=== PATIENT | female | born 1980 | race Caucasian/White ===

== ENCOUNTER → 2020-06-18 07:00 | Outpatient (CLI) | payer OTHER, SELFPAY ==
--- NOTE | 2020-06-18 07:06 | CT_ITS ---
STUDY: CT MAXILLOFACIAL SINUSES REASON FOR EXAM: Female, 40 years old. SINUSITIS RADIATION DOSAGE (If Supplied By Facility): CTDIvol = ( 33.06 ) mGy, DLP = ( 767.73 ) mGycm TECHNIQUE: The patient was scanned in a multi detector CT scanner. High resolution axial imaging was performed without the administration of intravenous contrast material. Sagittal and coronal images were reconstructed. Individualized dose optimization techniques were used for this CT. COMPARISON: None. FINDINGS: FRONTAL SINUSES: Normal aeration, without mucosal inflammatory disease. ETHMOIDAL SINUSES: Normal aeration, without mucosal inflammatory disease. MAXILLARY SINUSES: Normal aeration, without mucosal inflammatory disease. SPHENOIDAL SINUSES: Normal aeration, without mucosal inflammatory disease. There is patency of the bilateral maxillary infundibuli with normal uncinate processes, ethmoid bullae, and hiatus semilunaris. Normal bilateral middle turbinates. Normal bilateral inferior turbinates. There is a left sided nasal septal deviation, but without a nasal septal spur. There is patency of the bilateral nasal airways. The visualized osseous structures are normal. The visualized bilateral orbital contents are normal. CT/Sinus/Facial Bone IMPRESSION: 1. No CT evidence of acute or chronic sinusitis. 2. Patent ostial units bilaterally. 3. Deviation of nasal septum to the left. Electronically Signed: Jacobo Roach MD at 7:42 EDT Tel , Service support ,
== END ==
PROVIDERS: Referring Provider Otolaryngology; Visit Provider Otolaryngology
DX: J43.9 Emphysema, unspecified (principal)
CPT/HCPCS: 70486

== ENCOUNTER 2020-12-21 23:29 | Observation (INO) | payer OTHER, SELFPAY ==
[2020-12-21 23:30] VITALS: BP 118/76; PULSE 86; RESP 18; TEMP 36.9; O2SAT 96; BMI 30.4
--- NOTE | 2020-12-21 23:39 | ED.VIS.GEN ---
History of Present Illness Chief Complaint: Nausea/Vomiting/Diarrhea Informant: Patient Onset: Yesterday Context: Gradual Onset Timing: Continuous Current Severity: Moderate Maximum Severity: Moderate Narrative: The patient is an otherwise healthy 40-year-old female presents to the emergency department abdominal pain. Patient states that yesterday afternoon, she had queso dip from [employer]. She states that she ate it and then at about 5 PM, she began to feel nauseated. She states that she had a few bouts of vomiting and then loose watery diarrhea. She states that she vomited throughout the night and was unable to keep anything down. Today, she states she started with diffuse abdominal pain, but is now since migrated to her right lower quadrant. She states is very tender. She is had a low-grade fever. She also notes the chills. The patient is otherwise been in her normal state of health. She has no history of prior abdominal surgery. Prior similar symptoms: No Recent Illness/Hospitalization: No Past Medical History - Allergies and Home Meds Allergies/Adverse Reactions: Allergies Penicillins [PCN] Allergy (Verified 12/21/20 23:33) Hives Sulfa (Sulfonamide Antibiotics) Allergy (Verified 12/21/20 23:33) Hives Primary Care Physician: Care Physician,No Primary [Primary Care Provider] - Prior records reviewed: Yes Past Medical History: None Surgical History: noncontributory Review of Systems General: Denies: Chills, Fever, Sweats Eyes: Denies: Visual changes - bilaterally, Diplopia ENT: Denies: Rhinorrhea, Sore throat Cardiovascular: Denies: Chest pain, Palpitations Respiratory: Denies: Dyspnea, Cough, Dyspnea on exertion Gastrointestinal: Denies: Abdominal pain, Nausea, Vomiting, Diarrhea, Melena, Hematochezia Genitourinary: Denies: Dysuria, Hematuria, Frequency Musculoskeletal: Denies: Back pain, Extremity Pain Skin: Denies: Rash, Wounds Neurological: Denies: Headache, Weakness, Numbness Physical Exam Vital Signs/Narrative: Vital Signs Temp Pulse Resp BP Pulse Ox 12/21/20 23:30 98.5 F 86 18 118/76 96 Inital Vital Signs reviewed: Yes General: Well nourished, Well developed, No Acute Distress Head: Normocephalic, Atraumatic Eyes: Perrl, EOMI ENT: Moist mucous membranes, No rhinorrhea Neck: Supple, Nontender Cardiovascular: Regular rate, Regular rhythm, No murmurs Respiratory: No distress, CTA bilaterally, Chest nontender Abdomen: Soft, Nondistended, Normal bowel sounds, Tender, Guarding Back: Nontender, Normal Inspection Extremities: Nontender, No edema Skin: Normal color, No rash Neurological: Alert, Oriented x3, Cranial nerves II-XII grossly intact, Normal Strength, Normal Sensation Psychological: Normal affect, Normal Mood Diagnostic/Tx/Re-eval Abnormal Lab Results 12/21/20 12/21/20 23:40 23:40 WBC 10.2 RBC 4.69 Hgb 14.4 Hct 42.5 MCV 90.6 MCH 30.7 MCHC 33.9 RDW Std Deviation 40.0 RDW Coeff of Latonya 12.2 Plt Count 225 MPV 12.6 H Immature Gran % (Auto) 1.600 H Neut % (Auto) 72.3 H Lymph % (Auto) 14.2 L [place] % (Auto) 10.9 H Eos % (Auto) 0.6 Baso % (Auto) 0.4 Absolute Neuts (auto) 7.4 Absolute Lymphs (auto) 1.45 Nucleated RBC % 0 Sodium 139 Potassium 3.4 L Chloride 106 Carbon Dioxide 28.0 Anion Gap 5 BUN 14 Creatinine 0.97 Estim Creat Clear Calc 77.77 Est GFR (MDRD) Af Amer 82 Est GFR (MDRD) Non-Af 67 BUN/Creatinine Ratio 14.4 Glucose 118 H Calcium 8.6 Total Bilirubin 1.20 H AST 18 ALT 30 Alkaline Phosphatase 80 Total Protein 7.6 Albumin 3.7 Globulin 3.9 Albumin/Globulin Ratio 0.9 - Medical Decision Making Patient presents with symptoms of gastroenteritis, but now she has migratory pain to her right lower quadrant voluntary guarding. IV was established. She was given fluids and antiemetics. She declined analgesics. Screening labs were obtained and were relatively unremarkable. The patient underwent CT imaging. She does have evidence of acute appendicitis. I did discuss this patient with surgery. She was covered with broad-spectrum antibiotics. Plan will be for admission. Impression 1. Acute appendicitis ED Disposition - Plan for ED Patient: Referrals: Care Physician,No Primary [Primary Care Provider] -
[2020-12-21] MEDS: 0.9% Normal Saline 1,000 ML 1000 ML IV (23:48)
[2020-12-22] VITALS (13 sets, daily range): BP systolic 101–149; BP diastolic 54–112; PULSE 69–92; RESP 16–18; TEMP 36.6–37.2; O2SAT 96–99; BMI 39.4; BMI 39.2; BMI 39.3
--- NOTE | 2020-12-22 | APP_PTH ---
PATIENT: DANIEL LEA LOC: [facility] U#:[id number] AGE/SX: 40/F ROOM: [facility] RE12/22/[address]: Dr. Josiah Venegas MD : 1980 BED: 1 DIS: 12/22/2020 SPEC #: [id number] RECD: 12/22/20 07:32 STATUS: GAYLA REKar #: [id number] BRENDAN: 12/22/20 00:[address]: Josiah Venegas DEPT: SURGICAL PATHOLOGY RECD BY: Eladio Rodriguez ENTERED: 12/22/20 07:42 SP TYPE: APPENDIX OTHR DR: No Primary Care Phys Tissues: Appendix, NOS Procedures: Surgery Specimen Level III HEADER OPERATION: Laparoscopic appendectomy PRE-OP DIAGNOSIS: Acute appendicitis TISSUE SUBMITTED: Appendix MICROSCOPIC DIAGNOSIS Appendix, appendectomy: Acute appendicitis and periappendicitis. DOMENICO:beata 12/23/2020 MICROSCOPIC DESCRIPTION Slides are reviewed. GROSS DESCRIPTION Received in fixative is one container labeled with the patient's name and designated appendix. The specimen consists of an appendix measuring 6.5 cm in length and up to 4.7 cm in diameter. The attached periappendiceal adipose tissue measures up to 1.5 cm in width. The serosa is congested. No obvious perforation is identified. The mucosa is congested. No fecalith is identified. Sprinkler Repair Technician sections are submitted in one cassette. / SJ:beata 12/22/20 TC:2 CPT: 35431
[2020-12-22 00:03] LABS: Absolute Lymphocyte Count 1.45 X10^3/uL (0.83-4.51); Absolute Neutrophil Count 7.4 X10^3/uL (2.0-7.7); Basophil# 0.04 X10^3/uL; Basophil% 0.4 % (0-1); Eosinophil# 0.06 X10^3/uL; Eosinophils% 0.6 % (0-5); Hematocrit 42.5 % (37-47); Hemoglobin 14.4 g/dL (12.0-15.0); Lymphocyte # 1.45 X10^3/ul (4.0); Lymphocyte % 14.2 % (19-41); Mean Corp Hgb Conc 33.9 g/dL (32-36); Mean Corpuscular Hgb 30.7 pg (27.0-32.0); Mean Corpuscular Volume 90.6 fL (81-99); Mean Platelet Vol. 12.6 fl (6.2-12.0); Monocyte# 1.11 X10^3/uL; Monocyte% 10.9 % (0-10); NRBC Flagged by Analyzer 0 % (0-5); Neutrophil # 7.36 X10^3/uL (2.7-7.7); Neutrophil % 72.3 % (47-70); Platelet Count 225 K/mm3 (150-450); RBC Distribution Width CV 12.2 % (11.6-14.6); Red Blood Count 4.69 M/mm3 (4.2-5.4); White Blood Count 10.2 K/mm3 (4.4-11.0)
[2020-12-22 00:05] LABS: ALB/GLOB Ratio 0.9 RATIO (0.9-2.4); AST(SGOT) 18 U/L (15-37); Alanine Aminotransfer ALT/SGPT 30 U/L (13-56); Albumin, Serum 3.7 g/dL (3.2-5.0); Alkaline Phosphatase 80 U/L (45-117); Anion Gap 5 (5-15); BUN 14 mg/dL (7-18); BUN/Creat Ratio 14.4 RATIO (10-20); Calcium,Total 8.6 mg/dL (8.5-10.1); Chloride 106 mmol/L (98-107); Creatinine, Serum 0.97 mg/dL (0.55-1.02); EST Glomerular Filtration Rate 67 mL/min (>60); Est Glom Filt Rate - Afr Amer 82 mL/min (>60); Estimated Creatinine Clearance 77.77 ml/min; Globulin 3.9 g/dL (2.2-4.2); Glucose 118 mg/dL (74-106); Potassium 3.4 mmol/L (3.5-5.1); Protein, Total 7.6 g/dL (6.4-8.2); Sodium Level 139 mmol/L (136-145)
[2020-12-22] MEDS: Ciprofloxacin 400 MG/200 ML BAG 200 MG IV ×2 (01:01→10:45)
[2020-12-22 01:07] LABS: Bacteria 0 SEEN /hpf (None Seen); Color, Urine Yellow (Yellow); Glucose, Dipstick Normal (Normal); Ketone-Dipstick 5 mg/dl (Negative); Leukocyte Esterase-Dipstick 100 /ul (Negative); Mucous, Urine 0 SEEN /hpf (<or=2+); Nitrite-Dipstick Negative (Negative); Occult Blood-Urine Negative /ul (Negative); Protein-Dipstick 15 mg/dl (Negative); Red Blood Cells-Urine 0 SEEN /hpf (0-5); Urine Bilirubin Dipstick Negative (Negative); Urine Clarity Clear (Clear); Urine Urobilinogen Normal (Normal); Urine pH 6.5 (5.0 - 8.0)
--- NOTE | 2020-12-22 01:14 | PCM.CONS.GEN ---
Problem List (1) Acute appendicitis Status: Acute Qualifiers: Acute appendicitis type: with localized peritonitis Appendicitis gangrene presence: unspecified whether gangrene present Appendicitis perforation presence: unspecified whether perforation present Appendicitis abscess presence: unspecified whether abscess present Qualified Code(s): K35.30 - Acute appendicitis with localized peritonitis, without perforation or gangrene Reason for Consult Date of Consultation: 12/22/20 History of Present Illness: The patient is an otherwise healthy 40-year-old female presents to the emergency department abdominal pain. Patient states that yesterday afternoon, she had queso dip from [employer]. She states that she ate it and then at about 5 PM, she began to feel nauseated. She states that she had a few bouts of vomiting and then loose watery diarrhea. She states that she vomited throughout the night and was unable to keep anything down. Today, she states she started with diffuse abdominal pain, but is now since migrated to her right lower quadrant. She states is very tender. She is had a low-grade fever. She also notes the chills. The patient is otherwise been in her normal state of health. She has no history of prior abdominal surgery. Past Medical History Allergies Penicillins [PCN] Allergy (Verified 12/21/20 23:33) Hives Sulfa (Sulfonamide Antibiotics) Allergy (Verified 12/21/20 23:33) Hives Surgical History: noncontributory, - - 2 knee surgeries for her anterior cruciate ligaments Smoking Status: Never smoker - *Family History Maternal History Items: No pertinent history Review of Systems Constitutional: Reports: Anorexia. Denies: Chills, Fever Cardiovascular: Denies: Chest Pain, Chest Pressure, Chest Tightness, Palpitations Respiratory: Denies: Cough, Hemoptysis, Shortness of breath at rest, Shortness of breath upon exertion, Wheezing Gastrointestinal: Reports: Abdominal Pain. Denies: Diarrhea, Vomiting Genitourinary: Denies: Dysuria, Frequency, Hematuria, Urgency - Physical Exam Vitals/I&O's: Vital Signs Temp Pulse Resp BP Pulse Ox 98.5 F 86 18 118/76 96 12/21/20 23:30 12/21/20 23:30 12/21/20 23:30 12/21/20 23:30 12/21/20 23:30 Oxygen Delivery Method Room Air Weight: 200 lb Body Mass Index (BMI) 30.4 Intake and Output for Last 24 Hours 12/20/20 12/21/20 12/22/20 23:59 23:59 23:59 Intake Total 1000 / 1000 Balance 1000 / 1000 General: Alert, Oriented x3 Lungs: Clear to auscultation Cardiovascular: Regular rate, Regular Rhythm, No murmurs Abdomen: Tender - Patient has tenderness in the right lower quadrant with positive Rovsing sign. Positive heeltap. Abdomen is relatively soft. Localizing peritoneal findings are identified. Extremities: No clubbing, No cyanosis, No edema Laboratory Results 12/21/20 23:40: WBC 10.2, RBC 4.69, Hgb 14.4, Hct 42.5, MCV 90.6, MCH 30.7, MCHC 33.9, RDW Std Deviation 40.0, RDW Coeff of Latonya 12.2, Plt Count 225, MPV 12.6 H, Immature Gran % (Auto) 1.600 H, Neut % (Auto) 72.3 H, Lymph % (Auto) 14.2 L, [place] % (Auto) 10.9 H, Eos % (Auto) 0.6, Baso % (Auto) 0.4, Absolute Neuts (auto) 7.4, Absolute Lymphs (auto) 1.45, Nucleated RBC % 0 12/21/20 23:40: Sodium 139, Potassium 3.4 L, Chloride 106, Carbon Dioxide 28.0, Anion Gap 5, BUN 14, Creatinine 0.97, Estim Creat Clear Calc 77.77, Est GFR (MDRD) Af Amer 82, Est GFR (MDRD) Non-Af 67, BUN/Creatinine Ratio 14.4, Glucose 118 H, Calcium 8.6, Total Bilirubin 1.20 H, AST 18, ALT 30, Alkaline Phosphatase 80, Total Protein 7.6, Albumin 3.7, Globulin 3.9, Albumin/Globulin Ratio 0.9 Current Medications Ciprofloxacin (Cipro) 400 mg in 200 mls @ 200 mls/hr IV X1 ONE Stop: 12/22/20 01:44 Last Admin: 12/22/20 01:01 Dose: 200 mls/hr Documented by: Clindamycin Phosphate 900 mg/ (Dextrose) 106 mls @ 150 mls/hr IV X1 ONE Stop: 12/22/20 01:27 Assessment/Plan All Active Problems Acute appendicitis (Acute) Plan is to perform a laparoscopic appendectomy. Risk benefits include bleeding infection possible need for drain possible need to have further surgeries if an abscess were to develop. Patient understands of blood clots heart attacks pneumonia strokes are also a possibility of surgery and up to and including . All questions asked were answered patient is willing to proceed.
[2020-12-22 01:17] LABS: White Blood Cells 5-10 SEEN /hpf (0-5)
[2020-12-22 01:18] LABS: Squamous Epithelial Cells - UA 0-5 SEEN /hpf (5-10)
[2020-12-22 01:19] LABS: Internal QC Validated? YES +Cl - CLEAR BKGD; Pregnancy, Urine Negative Negative
--- NOTE | 2020-12-22 02:36 | PCM.OPRPT ---
Problem List (1) Acute appendicitis Status: Acute Qualifiers: Acute appendicitis type: with localized peritonitis Appendicitis gangrene presence: without gangrene Appendicitis perforation presence: without perforation Appendicitis abscess presence: without abscess Qualified Code(s): K35.30 - Acute appendicitis with localized peritonitis, without perforation or gangrene Report of Operation Date of Procedure: 12/22/20 Pre-Operative Diagnosis: Acute appendicitis Post-Operative Diagnosis: Same Surgery/Procedure Performed:: Laparoscopic appendectomy Type of Anesthesia:: General Anesthesiologist: Ricardo Zavala Specimen's removed: Appendix Estimated Blood Loss (mL): < 25 cc Description of Procedure: Patient was brought into the operating room. Placed in the supine position. Under excellent general endotracheal ovation the abdomen was sterilely prepped and draped in the usual fashion. Local was injected infraumbilically. Dissection was carried down to the fascia. The fascia grasped with a [place]. Varies needle was placed inside the abdomen. The abdomen was insufflated to 15 torr. A 10/12 trocar was placed difficulty. Suprapubic #5 trochars placed at left lower quadrant #5 trocar was placed. Both of these were placed under direct visualization without injury to underlying structures. Patient was placed in the headdown and rotated to the left. Patient was noted to have a retrocecal appendicitis I was able to dissect this free from the cecum and ascending colon I took the mesoappendix down with the Enseal and then I transected the base of the appendix with a 45 linear cutter. Placed a specimen specimen bag delivered through the umbilical port. Patient was noted not to have any abscess specimen was not gangrenous it was not perforated. I irrigated the right lower quadrant good mistakes was noted. I inspected the small bowel and ran it there was no signs of a Meckel's diverticulum. There was no pus located within the pelvis. All the irrigant that was used was retrieved. I remove the trochars under direct visualization good in the stasis was noted. I closed the fascia the umbilical port with a [id number] stitch of 0 Vicryl. Skin incisions were closed with subcuticular stitches of 4-0 Monocryl. Steri-Strips were applied sterile dressings were applied and the patient tolerated the procedure well. - Admit VTE Documentation VTE Present on Admission: No VTE Mechan Device Prophylaxis: SCD's VTE Pharm Prophylaxis ordered?: No Reason prophylaxis not ordered:: Treatment Not Indicated [id number]: [id number] Laparoscopy appendectomy
[2020-12-22] MEDS: Bupivacaine Mpf 0.5% 30 ML VIAL (02:45)
[2020-12-22] MEDS: 0.9% Normal Saline 1,000 ML 75 ML IV ×2 (03:33→04:43)
[2020-12-22] MEDS: HYDROmorphone 0.5 MG/0.5 ML SYRINGE IV (04:22)
[2020-12-22] MEDS: Ketorolac 15 MG/ML Vial IV (04:35)
--- NOTE | 2020-12-22 16:22 | PCM.DC.APPY ---
Discharge Diet: Light diet - advance as tolerated - if you have questions about your diet instructions, please talk to you doctor. Discharge Activity: May Not Drive - for 3-5 days or while taking narcotic pain meds. May shower in (days): 1 Call your doctor if your incision/area has: Continuous Slow Oozing, Sudden Increased Bleeding, Increased Pain/ Swelling, Increased Redness, Foul Smelling Discharge Call your doctor if you observe: Fever of 101 or Higher Suture Line Care: Avoid Pulling/Pushing, Avoid Pinching/Bending Additional Dressing/Incision Instructions:: Keep dressing clean and dry. Change or remove dressing in 2 days. Leave steri strips for 1 week. May protect with a gauze bandaid. Medications to take at Discharge Oxycodone HCl/Acetaminophen [Percocet 5/325] 1 - 2 tab PO Q4H PRN PRN 6 Days #30 tab 12/22/20 Allergies/Adverse Reactions: Allergies Penicillins [PCN] Allergy (Verified 12/21/20 23:33) Hives Sulfa (Sulfonamide Antibiotics) Allergy (Verified 12/21/20 23:33) Hives The following prescriptions were given: Oxycodone HCl/Acetaminophen [Percocet 5/325] 1 - 2 tab PO Q4H PRN PRN 6 Days #30 tab PRN Reason: Pain Transmission Status: Received by BETTY COLLIER [facility] Primary Care Physician: Care Physician,No Primary [Primary Care Provider] - Test Results: Test results from this visit will be discussed in further detail at your follow-up appointment, if applicable. Please Follow Up With: Josiah Venegas MD - [phone] When: Call to make a follow up appointment with your doctor in 1 week.
[2020-12-22] MEDS: Acetaminophen 325 MG Tablet 650 MG PO (17:26)
--- NOTE | 2020-12-22 23:38 | CT_ITS ---
We are attempting to reach an attending provider to discuss findings. An addendum with communication details will be sent when the communication is complete. STUDY: CT ABDOMEN AND PELVIS WITH CONTRAST REASON FOR EXAM: Female, 40 years old. appy RADIATION DOSAGE (If Supplied By Facility): CTDIvol = ( 16.47 ) mGy, DLP = ( 1215.18 ) mGycm TECHNIQUE: Transaxial images were obtained from the dome of the diaphragm to the symphysis pubis without oral contrast. IV 100mL Isovue-300 was administered. Sagittal and coronal images were reconstructed. Individualized dose optimization techniques were used for this CT. COMPARISON: None. FINDINGS: The visualized lung bases are unremarkable. The visualized portions of the heart are within normal limits. Normal liver. Normal gallbladder and extrahepatic biliary system. There is mild splenomegaly. Normal pancreas. Normal bilateral adrenal glands. There is small right lower pole and left upper pole renal cortical cyst. There are no demonstrated urinary calculi or hydronephrosis.. There is a small hiatal hernia. Normal small intestine. The appendix is visualized on axial images 68-89, and it is enlarged and thick-walled with diameter of 1.2 cm. There is prominent surrounding fat infiltration, however, there is no demonstrated abscess or free intraperitoneal air to suggest appendiceal rupture. There is some mural thickening of the cecum around the base of the appendix, consistent with inflammation secondary to appendicitis. Otherwise, the colon appears normal. Normal abdominal aorta. Normal inferior vena cava. Normal retroperitoneum. Normal urinary bladder. Normal abdominal wall. Normal osseous structures. CT/Abdomen/Pelvis W IV Cont ONLY IMPRESSION: Acute appendicitis. No evidence for appendiceal rupture. Mild splenomegaly. Small hiatal hernia. Small renal cyst. No demonstrated urinary calculi or hydronephrosis. Electronically Signed: Wong Sanchez MD at 0:58 EST , Service support ,
== END 2020-12-22 16:22 | disposition home or self-care (01) ==
LOC: ED 12-22 00:25 → PCU 12-22 02:57
PROVIDERS: Admitting Provider Surgery; Emergency Provider Emergency Medicine; Visit Provider Surgery
PROC: 0DTJ4ZZ Resection of Appendix, Percutaneous Endoscopic Approach (ICD-10-PCS; CPT 44970; principal; 2020-12-22 02:15)
DX: K35.31 Acute appendicitis with localized peritonitis and gangrene, without perforation (principal)
CPT/HCPCS: 00840; 44970; 74177; 80053; 81001; 81025; 85025; 87426; 88304; 96361; 96365; 96366; 96367; 96375; 99218; 99284; J7030; J7050; Q9967; A4216; C1760; G0378; J0744; J2405

== ENCOUNTER 2021-05-31 20:47 | Emergency (ER) | payer OTHER, SELFPAY ==
[2020-12-22 04:12] VITALS: BMI 39.2
[2021-05-31 20:48] VITALS: BP 145/90; PULSE 79; RESP 18; TEMP 36.6; O2SAT 98; BMI 34.9
[2021-05-31 21:16] LABS: Bacteria 0 SEEN /hpf (None Seen); Mucous, Urine 0 SEEN /hpf (<or=2+); Squamous Epithelial Cells - UA 0 SEEN /hpf (5-10)
[2021-05-31 21:19] LABS: Color, Urine Yellow (Yellow); Glucose, Dipstick Normal (Normal); Ketone-Dipstick 5 mg/dl (Negative); Leukocyte Esterase-Dipstick 100 /ul (Negative); Nitrite-Dipstick Negative (Negative); Occult Blood-Urine 250 /ul (Negative); Protein-Dipstick 30 mg/dl (Negative); Urine Bilirubin Dipstick Negative (Negative); Urine Clarity Cloudy (Clear); Urine Urobilinogen Normal (Normal)
[2021-05-31 21:40] LABS: Red Blood Cells-Urine > 100 SEEN /hpf (0-5); White Blood Cells 10-25 SEEN /hpf (0-5)
--- NOTE | 2021-05-31 22:29 | CT_ITS ---
STUDY: CT ABDOMEN AND PELVIS WITHOUT CONTRAST REASON FOR EXAM: Female, 41 years old. flank pain RADIATION DOSAGE (If Supplied By Facility): CTDIvol = ( 19.74 ) mGy, DLP = ( 1060.42 ) mGycm TECHNIQUE: Transaxial images were obtained from the dome of the diaphragm to the symphysis pubis without oral contrast, and without intravenous contrast. Sagittal and coronal images were reconstructed. Individualized dose optimization techniques were used for this CT. COMPARISON: None. FINDINGS: The visualized lung bases are unremarkable. The visualized portions of the heart are within normal limits. Normal liver. Normal gallbladder and extrahepatic biliary system. Normal spleen. Normal pancreas. Normal bilateral adrenal glands. Normal right kidney. Normal left kidney. Normal visualized stomach. Normal small intestine. Normal colon. There are surgical clips in the region of the appendix consistent with a prior appendectomy. Normal abdominal aorta. Normal inferior vena cava. Normal retroperitoneum. Normal urinary bladder. Normal visualized uterus. Normal abdominal wall. Normal osseous structures. CT/Abdomen/Pelvis without Cont IMPRESSION: Normal unenhanced CT of the abdomen and pelvis. Electronically Signed: Fortino Yeboah DO at 23:31 EDT Tel , Service support ,
[2021-05-31 22:36] LABS: Internal QC Validated? YES +Cl - CLEAR BKGD; Pregnancy, Urine Negative Negative
[2021-05-31 22:43] LABS: Absolute Lymphocyte Count 2.05 X10^3/uL (0.83-4.51); Absolute Neutrophil Count 4.8 X10^3/uL (2.0-7.7); Basophil# 0.05 X10^3/uL; Basophil% 0.6 % (0-1); Eosinophil# 0.07 X10^3/uL; Eosinophils% 0.9 % (0-5); Hematocrit 41.6 % (37-47); Hemoglobin 13.9 g/dL (12.0-15.0); Lymphocyte # 2.05 X10^3/ul (0.83-4.51); Lymphocyte % 26.5 % (19-41); Mean Corp Hgb Conc 33.4 g/dL (32-36); Mean Corpuscular Hgb 30.8 pg (27.0-32.0); Mean Corpuscular Volume 92.2 fL (81-99); Mean Platelet Vol. 12.6 fl (6.2-12.0); Monocyte# 0.76 X10^3/uL; Monocyte% 9.8 % (0-10); NRBC Flagged by Analyzer 0 % (0-5); Neutrophil # 4.78 X10^3/uL (2.7-7.7); Neutrophil % 61.8 % (47-70); Platelet Count 223 K/mm3 (150-450); RBC Distribution Width CV 12.1 % (11.6-14.6); Red Blood Count 4.51 M/mm3 (4.2-5.4); White Blood Count 7.7 K/mm3 (4.4-11.0)
[2021-05-31 22:54] VITALS: RESP 16
[2021-05-31 22:56] LABS: Anion Gap 5 (5-15); BUN 21 mg/dL (7-18); BUN/Creat Ratio 25.8 RATIO (10-20); Calcium,Total 8.8 mg/dL (8.5-10.1); Chloride 108 mmol/L (98-107); Creatinine, Serum 0.82 mg/dL (0.55-1.02); EST Glomerular Filtration Rate 82 mL/min (>60); Est Glom Filt Rate - Afr Amer 99 mL/min (>60); Estimated Creatinine Clearance 91.08 ml/min; Glucose 119 mg/dL (74-106); Sodium Level 141 mmol/L (136-145)
--- NOTE | 2021-05-31 22:56 | EDS_ITS ---
HPI HPI - Female History of Present Illness Chief Complaint: Flank Pain Narrative Narrative: 52-year-old female presenting with left flank pain and hematuria. She states she is noted that she has had blood in her panties and feels it is coming from her urethra. She denies vaginal bleeding. She is already been through menopause. She has a little bit of left flank pain associated with this. She denies nausea or vomiting. She denies diaphoresis. No history of kidney stones. She has no concern for . 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 She is on control. Patient denies any rectal bleeding. No constipation or diarrhea. 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 PFSH PFSH Allergy/AdvReac Type Severity Reaction Status Date / Time Penicillins [PCN] Allergy Hives Verified 05/31/21 20:52 Sulfa (Sulfonamide Allergy Hives Verified 05/31/21 20:52 Antibiotics) Surgical History Hx of appendectomy Social History Smoking Status: Never smoker ROS ROS ED Constitutional Constitutional ED: Denies chills, fever(s) or sweats Eyes Eyes: Denies blurry vision or change in vision ENT ENT ED: Denies ear pain, rhinorrhea or sore throat Cardiovascular Cardiovascular: Denies chest pain, palpitations or racing heartbeat Respiratory/Chest Respiratory/Chest: Denies cough, dyspnea or sputum Gastrointestinal Gastrointestinal: Reports abdominal pain; Denies constipation, diarrhea or vomiting Genitourinary Genitourinary ED: Reports dysuria and hematuria; Denies urinary frequency Musculoskeletal Musculoskeletal: Reports other Details: Left flank pain ; Denies arthralgias, myalgias or neck pain Integumentary Denies abscess, Abrasions or rash Neurologic Neurologic: Denies headache(s), paresthesias or weakness Psychiatric Psychiatric: Denies anxiety, depression, suicidal ideation or suicidal thoughts Endocrine Endocrinology: Denies polydipsia or polyuria EXAM Physical Exam Const Vital Signs: 05/31/21 20:48 05/31/21 22:54 Temperature 97.9 F Temperature Source Temporal Pulse Rate 79 Respiratory Rate 18 16 Blood Pressure 145/90 H Blood Pressure Mean 108 Pulse Ox 98 Oxygen Delivery Method Room Air Positive well nourished General Appearance ED: NAD; Negative for pallor HEENT Reports normocephalic, head/scalp atraumatic and moist mucous membranes Eyes PERRL and EOMs intact bilaterally Neck no lymphadenopathy and supple Chest Wall inspection of chest normal and palpation of chest normal Resp normal respiratory effort and clear to auscultation bilaterally Auscultation: Negative for rales, rhonchi or wheezes Cardio regular rate and regular rhythm GI normal to inspection, nondistended, normoactive bowel sounds and non-distended Auscultation: normoactive bowel sounds Palpation: soft Narrative: Deferred Back/Spine General Back: CVA tenderness left Extremity normal to inspection General Extremety ED: Yes edema and tenderness General Extremity: edema Neuro oriented x3 and CN's II-XII intact bilaterally Sensorium / Orientation: alert Motor Exam: strength 5/5 throughout Psych mental status grossly normal Attitude: No agitated Skin no rashes or lesions noted and no wounds General Skin Exam: Negative for jaundice or pallor MDM MDM MDM Narrative Medical decision making narrative: Patient presents with left flank pain. Patient also has which he is concerned his hematuria. On examination she does have CVA tenderness and her abdomen is soft and nonperitoneal. CBC shows no leukocytosis and no left shift. Hemoglobin hematocrit are stable. Platelets are normal. Urinalysis does show some occult blood without sign of infection. Renal function and electrolytes are normal. I did obtain CT abdomen pelvis without contrast to look for kidney stone and this was normal. They do see surgical clips were previous appendectomy was. On reevaluation she does state that she forgot she had her appendix out in December. Given her hematuria I did give her follow-up with urology. She is also given gynecology follow-up as she has no senior payroll manager locally. Patient counseled on return precautions otherwise she is to follow-up with the specialties outpatient. Impression: 1. Left flank pain 2. Hematuria Lab Data Attestation: I reviewed the patient's lab results. Labs: Laboratory Results - last 24 hr 05/31/21 05/31/21 05/31/21 21:05 22:13 22:35 WBC 7.7 RBC 4.51 Hgb 13.9 Hct 41.6 MCV 92.2 MCH 30.8 MCHC 33.4 RDW Std Deviation 41.0 RDW Coeff of Latonya 12.1 Plt Count 223 MPV 12.6 H Immature Gran % (Auto) 0.400 Neut % (Auto) 61.8 Lymph % (Auto) 26.5 [place] % (Auto) 9.8 Eos % (Auto) 0.9 Baso % (Auto) 0.6 Absolute Neuts (auto) 4.8 Absolute Lymphs (auto) 2.05 Nucleated RBC % 0 Sodium Potassium Chloride Carbon Dioxide Anion Gap BUN Creatinine Estim Creat Clear Calc Est GFR (MDRD) Af Amer Est GFR (MDRD) Non-Af BUN/Creatinine Ratio Glucose Calcium Urine Color Yellow Urine Clarity Cloudy Urine pH 5.0 Ur Specific [place] 1.030 Urine Protein 30 H Urine Glucose (UA) Normal Urine Ketones 5 H Urine Occult Blood 250 H Urine Nitrite Negative Urine Bilirubin Negative Urine Urobilinogen Normal Ur Leukocyte Esterase 100 H Urine RBC > 100 SEEN Urine WBC 10-25 SEEN Ur Squamous Epith Cells 0 SEEN Urine Bacteria 0 SEEN Urine Mucus 0 SEEN Urine Test Negative 05/31/21 22:35 WBC RBC Hgb Hct MCV MCH MCHC RDW Std Deviation RDW Coeff of Latonya Plt Count MPV Immature Gran % (Auto) Neut % (Auto) Lymph % (Auto) [place] % (Auto) Eos % (Auto) Baso % (Auto) Absolute Neuts (auto) Absolute Lymphs (auto) Nucleated RBC % Sodium 141 Potassium 4.0 Chloride 108 H Carbon Dioxide 28.0 Anion Gap 5 BUN 21 H Creatinine 0.82 Estim Creat Clear Calc 91.08 Est GFR (MDRD) Af Amer 99 Est GFR (MDRD) Non-Af 82 BUN/Creatinine Ratio 25.8 H Glucose 119 H Calcium 8.8 Urine Color Urine Clarity Urine pH Ur Specific [place] Urine Protein Urine Glucose (UA) Urine Ketones Urine Occult Blood Urine Nitrite Urine Bilirubin Urine Urobilinogen Ur Leukocyte Esterase Urine RBC Urine WBC Ur Squamous Epith Cells Urine Bacteria Urine Mucus Urine Test Radiography Diagnostic Testing: Radiology Impression Abdomen/Pelvis CT 05/31/21 22:29 IMPRESSION: Normal unenhanced CT of the abdomen and pelvis. Electronically Signed: Fortino Yeboah DO at 23:31 EDT Tel , Service support , Discharge Plan Triage Chief Complaint: Flank Pain Other Complaint: Vag Bleeding ED Provider: Neto Lamar Dx/Rx/DC Orders Instructions: ED Flank Pain, Uncertain Cause, ED Hematuria Primary Care Provider: Yvrose Thorpe Referrals: Yvrose Thorpe MD [Primary Care Provider] - Destiny Prince MD [STAFF PHYSICIAN] - As soon as possible Stephanie Henson MD [STAFF PHYSICIAN] - As soon as possible Disposition Disposition: Home, Self Care
[2021-05-31 23:52] VITALS: BP 138/69; PULSE 88; RESP 14; O2SAT 98
== END 2021-05-31 23:54 | disposition home or self-care (01) ==
PROVIDERS: Emergency Provider Student in an Organized Health Care Education/Training Program; PCP Internal Medicine
DX: R10.9 Unspecified abdominal pain (principal); R31.9 Hematuria, unspecified; Z79.3 Long term (current) use of hormonal contraceptives
CPT/HCPCS: 74176; 80048; 81001; 81025; 85025; 99283; A4216

== ENCOUNTER 2021-07-10 11:51 | Day surgery (SDC) | payer OTHER, SELFPAY ==
[2021-06-23 10:32] LABS: Hematocrit 41.4 % (37-47); Mean Corp Hgb Conc 33.8 g/dL (32-36); Mean Corpuscular Hgb 31.3 pg (27.0-32.0); Mean Corpuscular Volume 92.4 fL (81-99); Mean Platelet Vol. 11.9 fl (6.2-12.0); Platelet Count 219 K/mm3 (150-450); RBC Distribution Width CV 12.6 % (11.6-14.6); RBC Distribution Width SD 42.6 fl (35.1-43.9); Red Blood Count 4.48 M/mm3 (4.2-5.4); White Blood Count 3.6 K/mm3 (4.4-11.0)
[2021-06-23 10:43] LABS: Prothrombin Time (Protime)PT. 12.9 SECONDS (11.7-14.9)
[2021-06-23 11:05] LABS: Internal QC Validated? YES +Cl - CLEAR BKGD; Pregnancy, Serum, hCG Quali. NEGATIVE Negative
[2021-06-23 11:07] LABS: Follicle Stimulating Hormone 63.4 mIU/mL; Thyroid Stim Hormone (TSH) 1.09 uIU/mL (0.358-3.74)
--- NOTE | 2021-07-09 20:41 | HP.PCM_ITS ---
History and Physical Date of Admission: 07/10/21 Surgical History and Physical Vera Hammond, a 41 year old female 0 0 0 0 0, presents for D and C and hysteroscopy on July 10, 2021 at . -- Postmenopausal Bleeding -- Vera presents here today with concerns regarding sudden onset of PMB. 41 y.o. G 0 P 0 sexually inactive non-smoker with no menses since 2001 with diagnosis of Premature Ovarian Failure. Reports that 05-21-21 she was at her first PT appointment for her (R) knee and had sudden onset of bleeding of moderate amount with cramping into her lower back. Bleeding lasted approximately 5 days and she had thought possible ruptures ovarian cyst, but very concerned as she has been post-menopausal for years. Sdditional comments are: Premature Ovarian Failure in 2001.; Additional comments are: Has not had a period for more than 8 years.. MEDICATIONS HISTORY: Patient is also takin. No Meds ALLERGIES: Penicillins, Hives and/or rash, Sulfa (Sulfonamide Antibiotics) and Hives and/or rash Infections - Chicken pox Illnesses - Premature Ovarian Failure Accidents - None Hospitalizations - see surgery Review of Systems: GENERAL - Denies fever, or chills SKIN - Denies skin changes EYES - Denies visual changes EARS - Denies difficulty hearing NOSE - Denies nasal congestion or bleeding MOUTH - Denies sore throat or difficulty swallowing NECK - Denies pain or swelling RESPIRATORY - Denies shortness of breath or wheezing CARDIOVASCULAR - Denies palpitations or chest pain GASTROINTESTINAL - Denies nausea, vomiting, diarrhea, constipation GENITOURINARY - Denies dysuria, frequency of urination, incontinence of urine MUSCULOSKELETAL - Denies joint or muscle pain NEUROLOGICAL - Denies localized numbness or weakness PSYCHIATRIC - Denies depression or anxiety ENDOCRINE - Denies heat or cold intolerance, weight loss or gain HEMATO-IMMUNOLOGIC - Denies excesive bleeding with cuts SOCIAL HISTORY: Alcohol Use - RARELY Smoking - Never Diet - LACTOSE FREE Lifestyle - moderate stress lifestyle and single Exercise - regular Seat Belt Use - always Employer - [employer] 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 (R) Knee reconstruction of ACL x 2 98 & 99 ; - 2. Appendectomy, 12/2020 ; - PHYSICAL EXAM BP- 100/72 Sitting, Right arm, large cuff Weight- 240.43506 lbs Height- 66 inch BMI:38.8 CONSTITUTIONAL - NAD, well nourished, and well developed SKIN - No rash, lesions, or ulcers HEENT - Normocephalic, PERRLA, EOMI NECK - No nodes, no nuchal rigidity and thyroid normal size and texture LYMPH NODES - Palpation of lymph nodes in neck and groins within normal limits LUNGS - CTA x2 without wheezes, crackles or rales CARDIAC - Regular rate and rhythm without rubs, murmurs, or gallops ABDOMEN - Without hepatosplenomegaly, distention, masses, rebound, or guarding; normal bowel sounds; no hernias EXTREMITIES - No edema or calf tenderness NEUROLOGICAL - Cranial nerves II-XII grossly intact PSYCHIATRIC - A and O to time, place, person, mood and affect External Genitial Vagina - non-tender without lesions Urethra/Urethral Meatus - non-tender Bladder - non-tender Vagina - vaginal mccall are pink and moist without loss of rugae and no evidence of atropy Cervix - without cervical motion tenderness and has normal size and features without evident lesions Uterus - multiparous size 6 cm & wt 75-125 g Adnexa - clear without massess or tenderness ASSESSMENT/PLAN: 1. Postmenopausal Bleeding and Premature Menopause Uncertain etiology but no polyps or fibroids are visualized and ultrasound done today. However, endometrium is slightly thickened at 5.5 mm. Unable to do vaginal examination or endometrial biopsy in the office so we will proceed with a hysteroscopy and Dilation and curettage. Discussed RBA's and procedure at length and all questions were answered.
[2021-07-10] VITALS (12 sets, daily range): BP systolic 101–116; BP diastolic 40–80; PULSE 50–66; RESP 16–49; TEMP 36.1–36.7; O2SAT 97–100; BMI 42.5
--- NOTE | 2021-07-10 | EMB_PTH ---
PATIENT: DANIEL LEA LOC: [facility] – [place] U#:[id number] AGE/SX: 41/F ROOM: RE07/10/[address]: Dr. Abrahan Conrad MD : 1980 BED: DIS: 07/10/2021 SPEC #: [id number] RECD: 07/10/21 14:19 STATUS: GAYLA VELOZ #: [id number] BRENDAN: 07/10/21 00:[address]: Abrahan Conrad DEPT: SURGICAL PATHOLOGY RECD BY: Eladio Rodriguez ENTERED: 07/11/21 12:02 SP TYPE: ENDOM BX/C CHINEDU DR: Dr. Yvrose Thorpe MD Tissues: Endometrium, NOS Procedures: Surgery Specimen Level IV HEADER OPERATION: Hysteroscopy, dilation and curettage PRE-OP DIAGNOSIS: Postmenopausal bleeding and premature menopause TISSUE SUBMITTED: Endometrial curetting MICROSCOPIC DIAGNOSIS Endometrium, curettings: Polypoid fragments of endometrium with simple hyperplasia without atypia. See comment. AM:rg 07/12/2021 COMMENT The lesion may represent an endometrial polyp. Clinical correlation is suggested. MICROSCOPIC DESCRIPTION Slides are reviewed. GROSS DESCRIPTION Received in fixative is one container labeled with the patient's name and designated endometrial curettings. The specimen consists of multiple irregular fragments of light to dark mclean soft tissue that in aggregate measure 3 x 2 x 0.1 cm. The specimen is totally submitted in one cassette. / AM:beata 07/11/2021 TC:1 CPT: 98905
[2021-07-10] MEDS: Lactated Ringers 1,000 ML 100 ML IV ×2 (12:25→14:45)
[2021-07-10 12:42] LABS: Internal QC Validated? YES +Cl - CLEAR BKGD; Pregnancy, Urine Negative Negative
--- NOTE | 2021-07-10 12:59 | PCM.OPRPT ---
Report of Operation Date of Procedure: 07/10/21 Pre-Operative Diagnosis: Postmenopausal Bleeding Post-Operative Diagnosis: Postmenopausal Bleeding, Endometrial Polyp Surgery/Procedure Performed:: Diagnostic Hysteroscopy, Dilation Curettage Description of Surgical Findings:: 8 cm endometrial cavity without fibroids present. There is approximately a 0.5 cm posterior uterine polyp which was removed with the curettings. Cervix prolapses minimal which would make robotic hysterectomy necessary should this type of procedure be necessary. Surgeon: Abrahan Conrad Type of Anesthesia: MAC Anesthesiologist: Jessee Silva Specimen's removed: Endometrial curettings Estimated Blood Loss (mL): Minimal Fluids Replaced: Crystalloid Description of Procedure: Surgeon: Abrahan Conrad MD, FACOG Indications: This is a 41 year old patient who has the above diagnosis. She has premature ovarian failure and recently had some postmenopausal bleeding. Endometrium is thickened to approximately 6 mm on ultrasound. No polyps or fibroids are seen. The patient has been counseled regarding the risk and indications of this procedure including the possibility of bleeding, infection, and injury to surrounding structures such as bowel bladder. All questions were answered and we consider the patient well-informed. Procedure: The patient was taken to the operating room where after induction of general anesthesia, she was placed in the dorsolithotomy position and prepped and draped in the usual sterile fashion. Anterior cervix was grasped with the tenaculum and dilated to about 4-5 mm. A 3 mm hysteroscope was placed in the uterus of the above findings were noted. Cervix was dilated to about 7-8 mm and uterus was gently curetted removing all contents. Hysteroscope was reinserted and all material was noted to be removed. In the course of the procedure approximately 100 cc of saline distending media was used and virtually all of this was recovered. Patient tolerated procedure well was taken to recovery room in satisfactory condition sponge instrument and needle counts were all reportedly correct. Estimated blood loss for the case was minimal. Specimens to pathology was endometrial curettings Grafts/Implants Used: None Complications None Admit VTE Documentation VTE Present on Admission: Yes VTE Mechan Device Prophylaxis: SCD's
--- NOTE | 2021-07-10 13:03 | PCM.DC ---
Discharge Instructions Diet Discharge Diet: No restrictions Activity Discharge Activity: Return to Normal Activity, May Shower and May Take a Tub Bath May resume sexual activity in: 1-2 weeks Additional Activity Instructions:: Nothing in vagina for 1 to 2 weeks. Okay the use ibuprofen or Tylenol per package directions for any cramping you may have over the next few days. Dressing / Incision Call your doctor if you observe: Fever of 101 or Higher, Inability to urinate and Inability to have a bowel movement Follow Up Care Please Follow Up With: Abrahan Conrad MD When: 2 to 3 weeks Test Results: Test results from this visit will be discussed in further detail at your follow-up appointment, if applicable. Discharge Plan Admission Primary Reason for Your Visit: Dilation and Curettage, Hysteroscopy Attending Provider: Abrahan Conrad Primary Care Provider: Yvrose Thorpe Discharge Orders/Prescriptions Prescriptions: No Action NK RF: 0 Referrals / Follow Up: Yvrose Thorpe MD [Primary Care Provider] - Disposition Disposition (needs filled in before D/C Order can be placed): Home, Self Care
[2021-07-10] MEDS: Cefotetan 2 GM in 0.9% NS 100 ML IV (13:26)
== END 2021-07-10 16:20 | disposition home or self-care (01) ==
LOC: SDC 11:51 → AC 11:52
PROVIDERS: Anesthesiology; PCP Internal Medicine; Referring Provider Obstetrics & Gynecology; Visit Provider Obstetrics & Gynecology
PROC: 0UDB8ZZ Extraction of Endometrium, Via Natural or Artificial Opening Endoscopic (ICD-10-PCS; CPT 58558; principal; 2021-07-10 13:30)
DX: N95.0 Postmenopausal bleeding (principal); N85.01 Benign endometrial hyperplasia; E28.39 Other primary ovarian failure; Z88.0 Allergy status to penicillin; Z88.2 Allergy status to sulfonamides; Z90.49 Acquired absence of other specified parts of digestive tract
CPT/HCPCS: 00952; 58558; 36415; 81025; 83001; 84443; 84703; 85027; 85610; 85730; 86850; 86900; 86901; 88305; J7120; J2405

== ENCOUNTER 2021-09-04 08:48 | Day surgery (SDC) | payer OTHER, SELFPAY ==
[2021-08-30 11:23] LABS: Hematocrit 40.7 % (37-47); Mean Corp Hgb Conc 34.4 g/dL (32-36); Mean Corpuscular Hgb 31.5 pg (27.0-32.0); Mean Corpuscular Volume 91.7 fL (81-99); Mean Platelet Vol. 12.1 fl (6.2-12.0); Platelet Count 218 K/mm3 (150-450); RBC Distribution Width SD 40.2 fl (35.1-43.9); Red Blood Count 4.44 M/mm3 (4.2-5.4); White Blood Count 3.8 K/mm3 (4.4-11.0)
[2021-08-30 11:30] LABS: Prothrombin Time (Protime)PT. 12.8 SECONDS (11.7-14.9)
[2021-08-30 11:31] LABS: Partial Thromboplast Time 29.2 Seconds (24.1-36.2)
[2021-08-30 11:42] LABS: Internal QC Validated? YES +Cl - CLEAR BKGD; Pregnancy, Serum, hCG Quali. NEGATIVE Negative
[2021-08-30 12:02] LABS: AST(SGOT) 14 U/L (15-37); Alanine Aminotransfer ALT/SGPT 24 U/L (13-56); Albumin, Serum 3.5 g/dL (3.2-5.0); Alkaline Phosphatase 71 U/L (45-117); Bilirubin, Direct 0.22 mg/dL (0.00-0.30); Creatinine, Serum 0.71 mg/dL (0.55-1.02); EST Glomerular Filtration Rate 96 mL/min (>60); Est Glom Filt Rate - Afr Amer 116 mL/min (>60); Globulin 3.8 g/dL (2.2-4.2); Magnesium 2.4 mg/dL (1.6-2.6); Protein, Total 7.3 g/dL (6.4-8.2)
--- NOTE | 2021-09-02 12:04 | HP.PCM_ITS ---
History and Physical Date of Admission: 09/04/21 Surgical History and Physical Vera Hammond, a 41 year old female 0 0 0 0 0, presents for RAVH/BSO on September 04, 2021 at 10:45. -- Premature Ovarian Failure; Postmenopausal Bleeding; Simple EM Hyperplasia -- Recent D and C pathology showed simple EM hyperplasia. Has tried both provera and prometrium in past and does not tolerate. FSH confirms postmenopausal status. PMB stsarted on 05-21-21 which began 05-21-21. Vera claims it started suddenly and has been present 3 -4 weeks ago. It occurs intermittantly. It is located in the vagina. It is located in the lower abdomen. Vera characterizes it to be to the back. Vera characterizes the quality cramping. Vera characterizes the quality moderate bleeding. Severity is moderate and very concerned. Additional comments are: Premature Ovarian Failure in 2001. Additional comments are: Has not had a period for more than 8 years. MEDICATIONS HISTORY: Patient is also takin. No Meds ALLERGIES: Penicillins, Hives and/or rash, Sulfa (Sulfonamide Antibiotics) and Hives and/or rash Infections - Chicken pox Illnesses - Premature Ovarian Failure Accidents - None Hospitalizations - see surgery Review of Systems: GENERAL - Denies fever, or chills SKIN - Denies skin changes EYES - Denies visual changes EARS - Denies difficulty hearing NOSE - Denies nasal congestion or bleeding MOUTH - Denies sore throat or difficulty swallowing NECK - Denies pain or swelling RESPIRATORY - Denies shortness of breath or wheezing CARDIOVASCULAR - Denies palpitations or chest pain GASTROINTESTINAL - Denies nausea, vomiting, diarrhea, constipation GENITOURINARY - Denies dysuria, frequency of urination, incontinence of urine MUSCULOSKELETAL - Denies joint or muscle pain NEUROLOGICAL - Denies localized numbness or weakness PSYCHIATRIC - Denies depression or anxiety ENDOCRINE - Denies heat or cold intolerance, weight loss or gain HEMATO-IMMUNOLOGIC - Denies excesive bleeding with cuts SOCIAL HISTORY: Alcohol Use - RARELY Smoking - Never Diet - LACTOSE FREE Lifestyle - moderate stress lifestyle and single Exercise - regular Seat Belt Use - always 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 07/10/2021 hysteroscopy, D and C ; Abrahan Conrad M.D. 2. (R) Knee reconstruction of ACL x 2 98 & 99 3. Appendectomy, 12/2020 PHYSICAL EXAM BP- 146/86 Sitting, Right arm, large cuff Weight- 242.59791 lbs Height- 66 inch BMI:39.1 CONSTITUTIONAL - NAD, well nourished, and well developed SKIN - No rash, lesions, or ulcers HEENT - Normocephalic, PERRLA, EOMI NECK - No nodes, no nuchal rigidity and thyroid normal size and texture LYMPH NODES - Palpation of lymph nodes in neck and groins within normal limits LUNGS - CTA x2 without wheezes, crackles or rales CARDIAC - Regular rate and rhythm without rubs, murmurs, or gallops ABDOMEN - Without hepatosplenomegaly, distention, masses, rebound, or guarding; normal bowel sounds; no hernias EXTREMITIES - No edema or calf tenderness NEUROLOGICAL - Cranial nerves II-XII grossly intact PSYCHIATRIC - A and O to time, place, person, mood and affect External Genitial Vagina - non-tender without lesions Urethra/Urethral Meatus - non-tender Bladder - non-tender Vagina - vaginal mccall are pink and moist without loss of rugae and no evidence of atropy Cervix - without cervical motion tenderness and has normal size and features without evident lesions Uterus - multiparous size 6 cm & wt 75-125 g Adnexa - clear without masses or tenderness ASSESSMENT/PLAN: 1. Postmenopausal Bleeding and Premature Menopause; Simple EM Hyperplasia No polyps or fibroids are visualized and ultrasound. Endometrium is slightly thickened at 5.5 mm and Dilation and curettage showed simple EM hyperplasia. Pt desires we proceed with RAVH/BSO. Discussed RBA's and procedure at length and all questions were answered.
[2021-09-04] VITALS (11 sets, daily range): BP systolic 105–134; BP diastolic 73–96; PULSE 62–79; RESP 16–18; TEMP 36.1–36.7; O2SAT 16–100; BMI 36.1
--- NOTE | 2021-09-04 | HYST_PTH ---
PATIENT: DANIEL LEA LOC: [facility] – [place] U#:[id number] AGE/SX: 41/F ROOM: RE09/04/[address]: Dr. Abrahan Conrad MD : 1980 BED: DIS: 09/04/2021 SPEC #: [id number] RECD: 09/04/21 13:53 STATUS: GAYLA REQ #: [id number] BRENDAN: 09/04/21 00:[address]: Abrahan Conrad DEPT: SURGICAL PATHOLOGY RECD BY: Eladio Rodriguez ENTERED: 09/04/21 13:53 SP TYPE: HYSTERECT OTHR DR: MD Dr. Yvrose Jorge MD Tissues: Uterus, NOS Procedures: Surgery Specimen Level V HEADER OPERATION: Lap robotic hysterectomy, BSO PRE-OP DIAGNOSIS: Postmenopausal bleeding, premature menopause, simple EM hyperplasia TISSUE SUBMITTED: Cervix, uterus, bilateral fallopian tubes, bilateral ovaries MICROSCOPIC DIAGNOSIS Cervix, uterus, bilateral fallopian tubes and bilateral ovaries, hysterectomy and bilateral salpingo-oophorectomy: Cervix ? mild chronic cystic cervicitis. Endometrium ? proliferative endometrium with focal cystic changes. Myometrium - no pathologic diagnosis. Bilateral fallopian tubes - no pathologic diagnosis. Right ovary - no pathologic diagnosis. Left ovary ? a minute adenofibroma (0.2 cm in greatest dimension). Left paratubal cyst. SJ:rg 09/05/2021 COMMENT Please make reference to previous specimen ([id number]) endometrium, curettings with diagnosis of ?polypoid fragments of endometrium with simple hyperplasia without atypia.? MICROSCOPIC DESCRIPTION Slides are reviewed. GROSS DESCRIPTION Received in fixative is one container labeled with the patient's name and designated cervix, uterus, bilateral fallopian tubes, bilateral ovaries. The specimen consists of a hysterectomy specimen consisting of uterus with cervix and attached bilateral fallopian tubes and ovaries. The uterus with cervix weighs 32 gm and measures 7 x 4 x 2.5 cm. The serosal surface is mclean, glistening. The ectocervical mucosa is unremarkable. The external os is oval in contour. The endocervical canal measures 3 cm in length and the endocervical mucosa is mclean, glistening and unremarkable. The triangular endometrial cavity measures 4 cm in length and 2.5 cm in width. The endometrium is mclean, glistening without any mass lesion and measures 0.1 cm in thickness. Sections of the myometrial wall do not reveal any mass lesion and it measures 1 cm in thickness. The right fallopian tube measures 6.5 cm in length and 0.5 cm in diameter. The fimbrial end is identified. No tubo-ovarian adhesions are noted. Sections reveal unremarkable cut surfaces. The right ovary measures 2 x 1 x 0.5 cm. Sections reveal unremarkable cut surfaces. The left fallopian tube is similar appearance to right and measures 6.5 cm in length and up to 0.5 cm in diameter. A paratubal cyst is noted measuring 0.5 cm in greatest dimension. The left ovary is similar appearance to right and measures 2.2 x 0.7 x 0.7 cm. Secondary Art Teacher sections are submitted in ten cassettes as follows: 1 - anterior cervix, 2 - posterior cervix, 3 & 4 - anterior uterine wall, 5 & 6 - posterior uterine wall (the entire endometrium is submitted), 7 - right fallopian tube, 8 - right ovary, 9 - left fallopian tube and paratubal cyst, 10 - left ovary. / DOMENICO:beata 09/04/21 TC:5 CPT: 25836
[2021-09-04 09:26] LABS: Internal QC Validated? YES +Cl - CLEAR BKGD; Pregnancy, Urine Negative Negative
[2021-09-04] MEDS: Gabapentin 600 MG Tablet PO (10:16)
[2021-09-04] MEDS: Acetaminophen 500 MG Tablet 1000 MG PO (10:16)
[2021-09-04] MEDS: Lactated Ringers 1,000 ML 40 ML IV (10:16)
[2021-09-04 10:41] LABS: Bedside Glucose 95 mg/dL (70-110)
[2021-09-04] MEDS: Cefazolin 2 GM in 0.9% Normal Saline 100 ML IV (10:57)
--- NOTE | 2021-09-04 11:15 | OP.PCM_ITS ---
Report of Operation Date of Procedure: 09/04/21 Pre-Operative Diagnosis: Menorrhagia, Simple Endometrial Hyperplasia, Premature Ovarian Failure Post-Operative Diagnosis: Menorrhagia, Simple Endometrial Hyperplasia, Premature Ovarian Failure Surgery/Procedure Performed:: Robotic Assisted Vaginal Hysterectomy and Bilateral Salpingo-Oophorectomy Description of Surgical Findings:: 8 cm uterus with normal-appearing fallopian tubes and ovaries Surgeon: Abrahan Conrad heel seat trimmer: Stephen Callaway Type of Anesthesia: General (Endotracheal) Anesthesiologist: Ora Dailey Specimen's removed: Uterus and bilateral fallopian tubes and ovaries Drains: Suarez to straight drain Estimated Blood Loss (mL): Minimal Fluids Replaced: Crystalloid Description of Procedure: Surgeon: Abrahan Conrad MD, FACOG Indication: This is a 41 year old patient who has been having problems with menorrhagia and hyperplasia. Conservative measures have not been helpful. The patient has been counseled regarding the risks, benefits and alternatives of this procedure including the possibility of bleeding, infection, and injury to surrounding structures such as bowel bladder and all questions were answered. She understands that if BSO is needed that she will need to be on HRT for an indefinite period of time. Procedure: Pt taken to the operating room where, after induction of general anesthesia, the patient was prepped and draped in the usual sterile fashion and placed on a non-slip Huggy-u-vac device. Trendelenburg test was satisfactory. Bladder was drained of urine with a Suarez catheter which was left in place. Anterior cervix grasped and cervix was dilated to about 3-4 mm. Uterus sounded to 8 cms. 0-Vicryl suture was placed at the 3:00 and 9:00 position of the cervix. A small [employer] Uterine Manipulator was then placed in the uterus and attention was turned to the laparoscopic portion of the procedure. Ropivocaine 0.5% was injected approximately 2-3 cm superior to the umbilicus and an 8 mm robotic camera port was introduced directly with intraperitoneal placement confirmed with CO2 insufflation. 8 mm robotic side ports were introduced under direct visualization approximately 11 cm lateral and 2 cm inferior to the umbilical port. A 5 mm left upper quadrant port was introduced and airseal insufflation with CO2 was started. The above findings were noted. Robot was docked without difficulty and attention turned to the robotic portion of the procedure. Approximately 30 cc of Ropivicaine was used. Bilateral infundibulopelvic ligaments were ligated with 35 rush bipolar coagulation to the level of the round ligament. The posterior aspect of the cervix was identified and then opened for about 1 cm using 25 watt monopolar cautery identifying the uterine manipulating device which had been placed vaginally. Bladder flap was opened and divided to the level of the round ligaments using monopolar cautery. Progressive bites were then ligated on each side of the cervix with 35 rush bipolar cautery to the uterine arteries. The anterior vaginal mucosa was entered and cervix circumscribed with monopolar cautery. Uterus and attached tubes and ovaries were removed through the vagina. Vaginal cuff was closed first with 0-Vicryl Jaclyn stitches placed at each angle followed by closure of the mid-cuff with 0-Monocryl V-lock suture in two layers. Pelvis was copiously irrigated with saline and the right ureter was noted to peristalse. Robot was undocked and trocars were removed with as much gas as possible. Incisions were closed with 4-0 Monocryl subcuticular sutures and incisions covered with steri-strips. The patient tolerated the procedure well and was taken to the recovery room in satisfactory condition. Sponge, instruments and needle counts were all correct. There were no apparent complications of the surgery. Ancef 2 gms IV was given prior to the procedure. Estimated Blood Loss: Minimal Specimen to Pathology: Uterus and bilateral fallopian tubes and ovaries Grafts/Implants Used: None Complications None Admit VTE Documentation VTE Present on Admission: Yes VTE Mechan Device Prophylaxis: SCD's
--- NOTE | 2021-09-04 11:17 | PCM.DC ---
Discharge Instructions Diet Discharge Diet: No restrictions Activity Discharge Activity: May Shower and May Take a Tub Bath May resume sexual activity in: 6 weeks (nothing in the vagina.) Lifting Restrictions: 25 pounds for 6 weeks. Additional Activity Instructions:: Nothing in the vagina for 6 weeks please; no lifting more than 20-25 lbs for 6 weeks. Use Ibuprophen 800 mg orally every 8 hours as needed for pain. Can also add Tylenol 1000 mg every 8 hours if needed for pain. If Ibuprophen and Tylenol are not effective then use the Oxycodone but keep in mind it can cause serious constipation issues. Drink lots of water. Call if bleeding more than a pad per hour. Use the colace as constipation is a big issue after this type of surgery. Steps and walking are OK. Activity is encouraged but do not over do it !! Dressing / Incision Call your doctor if your incision/area has: Continuous Slow Oozing, Sudden Increased Bleeding, Increased Pain/ Swelling, Increased Redness and Foul Smelling Discharge Call your doctor if you observe: Fever of 101 or Higher, Inability to urinate, Inability to have a bowel movement, Using more than 1 pad per hour and - (Some vaginal bleeding may be noted for up to 4-8 weeks.) Cleanse incision/area with: - (Let the soapy water run over your incision, rinse and pat dry.) Additional Dressing/Incision Instructions:: The white strips (Steri Strips) on your incisions will fall off on their own. If they fall off and it bothers you it is okay to put Band-Aids across the incisions. Follow Up Care Please Follow Up With: Abrahan Conrad MD When: Call [phone] for an appointment to be seen in 2 weeks. Test Results: Test results from this visit will be discussed in further detail at your follow-up appointment, if applicable. Discharge Plan Admission Primary Reason for Your Visit: Robotic Vaginal Hysterectomy Attending Provider: Abrahan Conrad Primary Care Provider: Yvrose Thorpe Consulting Providers: Yasmani Conrad Discharge Orders/Prescriptions Prescriptions: New oxycodone 5 mg capsule 5 mg PO Q6H PRN (Reason: pain) 7 Days Qty: 10 RF: 0 docusate sodium 100 mg tablet 100 mg PO BID PRN (Reason: constipation) Qty: 60 RF: 1 estradiol 0.5 mg tablet 0.5 mg PO DAILY Qty: 90 RF: 4 Continued ibuprofen 400 mg Tablet 400 mg PO Q6H PRN (Reason: Pain) RF: 0 Referrals / Follow Up: Yvrose Thorpe MD [Primary Care Provider] - Disposition Disposition (needs filled in before D/C Order can be placed): Home, Self Care
[2021-09-04] MEDS: Ropivacaine 0.5% 30 ML Vial (11:37)
== END 2021-09-04 16:44 | disposition home or self-care (01) ==
LOC: SDC 08:51 → AC 08:52
PROVIDERS: Anesthesiology; PCP Internal Medicine; Referring Provider Obstetrics & Gynecology; Visit Provider Obstetrics & Gynecology
PROC: 0UT94ZZ Resection of Uterus, Percutaneous Endoscopic Approach (ICD-10-PCS; CPT 58552; principal; 2021-09-04 10:20)
DX: D27.1 Benign neoplasm of left ovary (principal); N83.8 Other noninflammatory disorders of ovary, fallopian tube and broad ligament; N72 Inflammatory disease of cervix uteri; N85.01 Benign endometrial hyperplasia; N95.0 Postmenopausal bleeding; E28.39 Other primary ovarian failure; Z88.0 Allergy status to penicillin; Z90.49 Acquired absence of other specified parts of digestive tract; Z88.2 Allergy status to sulfonamides
CPT/HCPCS: 00944; 58552; S2900; 36415; 80076; 81025; 82565; 82962; 83735; 84703; 85027; 85610; 85730; 86850; 86900; 86901; 88307; J7120; A4216; J2405

== ENCOUNTER 2021-12-25 07:03 | Outpatient (CLI) | payer BC, SELFPAY ==
--- NOTE | 2021-12-25 07:40 | CT_ITS ---
STUDY: CT RIGHTLOWER EXTREMITY WITHOUT CONTRAST REASON FOR EXAM: Female, 41 years old. RT KNEE OSTEOARTHRITIS. BRIDGET TEMPLATING preop RADIATION DOSAGE (If Supplied By Facility): CTDIvol = ( 18.79 ) mGy, DLP = ( 1295.91 ) mGycm TECHNIQUE: Thin section transaxial imaging of the right lower extremity from the hip to the foot was obtained, with sagittal and coronal reconstructed images. Individualized dose optimization techniques were used for this CT. COMPARISON: None. Hip findings: Normal femoral head, neck, intertrochanteric region and visualized proximal femur. Normal acetabulum. Normal hip joint. Normal visualized superior and inferior pubic rami and ischial tuberosities. Normal hip joint without articular joint space narrowing. Normal acetabulum. Normal labrum. Normal femoral head. Normal femoral neck and intratrochanteric region. Normal gluteus minimus, medius and iliopsoas tendons and distal insertions. Normal superior and inferior pubic rami. Normal pubic symphysis. Normal ischial tuberosity. Normal origin of the hamstring tendons. Normal visualized iliac wing, sacroiliac joint, and sacral ala. Normal visualized soft tissue structures of the pelvis. Knee findings: Moderate peripheral narrowing in the medial compartment with mild to moderate peripheral cortical osteophyte formation and subchondral sclerosis. Subchondral cystic changes are also present. ACL graft and associated osteotomy tunnel of the medial tibial plateau and lateral femoral condyle with anchoring hardware. Mild peripheral cortical osteophyte formation of the lateral femoral condyle. Normal lateral compartment space. Mild patellofemoral narrowing/osteoarthritis and small joint effusion. Normal proximal tibiofibular articulation. The quadriceps tendon is grossly normal. The patellar tendon is grossly normal. Normal Hoffa''s fat pad. Mild anterior subcutaneous edema of the knee. Ankle findings: Normal visualized distal tibia and fibula. Normal tibiotalar articulation and talar dome. Normal talus, calcaneus, navicular and cuboid tarsal bones. Normal subtalar, talonavicular and calcaneocuboid articulations. Normal navicular-cuneiform, cuneiform tarsal bones and intercuneiform articulations. Normal tarsometatarsal articulations and visualized metatarsi. The soft tissue structures are grossly normal. CT/Extremity Lower without Contra IMPRESSION: 1. Degenerative changes of the knee. 2. Normal exam of the hip and ankle. Electronically Signed: Sammy Priest MD at 10:06 EST ,
--- NOTE | 2021-12-25 07:41 | EKG12_ITS ---
Test Reason : PRE OP Blood Pressure : / mmHG Vent. Rate : 058 BPM Atrial Rate : 058 BPM P-R Int : 148 ms QRS Dur : 096 ms QT Int : 462 ms P-R-T Axes : 044 047 017 degrees QTc Int : 453 ms Sinus bradycardia with sinus arrhythmia Low voltage QRS Borderline ECG Confirmed by CADE CHAUDHARI, HOMERO ([id number]), manager editorial ONI PICKARD ([id number]) on 12/26/2021 11:17:18 AM Referred By: Naveen Moffett Confirmed By:HOMERO MOHAMUD MD
[2021-12-25 08:13] LABS: Absolute Lymphocyte Count 1.17 X10^3/uL (0.83-4.51); Absolute Neutrophil Count 1.8 X10^3/uL (2.0-7.7); Basophil# 0.03 X10^3/uL; Basophil% 0.8 % (0-1); Eosinophil# 0.13 X10^3/uL; Eosinophils% 3.6 % (0-5); Hematocrit 40.5 % (37-47); Lymphocyte # 1.17 X10^3/ul (0.83-4.51); Lymphocyte % 32.1 % (19-41); Mean Corp Hgb Conc 34.6 g/dL (32-36); Mean Corpuscular Hgb 30.9 pg (27.0-32.0); Mean Corpuscular Volume 89.4 fL (81-99); Mean Platelet Vol. 12.7 fl (6.2-12.0); Monocyte% 13.7 % (0-10); NRBC Flagged by Analyzer 0 % (0-5); Neutrophil # 1.81 X10^3/uL (2.7-7.7); Neutrophil % 49.5 % (47-70); Platelet Count 200 K/mm3 (150-450); RBC Distribution Width CV 12.6 % (11.6-14.6); RBC Distribution Width SD 40.8 fl (35.1-43.9); Red Blood Count 4.53 M/mm3 (4.2-5.4); White Blood Count 3.7 K/mm3 (4.4-11.0)
[2021-12-25 08:27] LABS: Albumin, Serum 3.5 g/dL (3.2-5.0); Anion Gap 4 (5-15); BUN 15 mg/dL (7-18); Calcium,Total 8.5 mg/dL (8.5-10.1); Chloride 107 mmol/L (98-107); Creatinine, Serum 0.72 mg/dL (0.55-1.02); EST Glomerular Filtration Rate 95 mL/min (>60); Est Glom Filt Rate - Afr Amer 115 mL/min (>60); Glucose 103 mg/dL (74-106); Potassium 3.5 mmol/L (3.5-5.1); Sodium Level 141 mmol/L (136-145)
== END 2021-12-25 23:59 | disposition home or self-care (01) ==
PROVIDERS: Physician Assistant Surgical; PCP Internal Medicine; Referring Provider Specialist; Visit Provider Specialist
DX: M17.31 Unilateral post-traumatic osteoarthritis, right knee (principal); Z01.810 Encounter for preprocedural cardiovascular examination; Z01.818 Encounter for other preprocedural examination
CPT/HCPCS: 36415; 73700; 80048; 82040; 85025; 93005